=== PATIENT | male | born 1975 | race Caucasian/White ===

== ENCOUNTER 2017-03-02 11:31 | Emergency (ER) | payer MEDICAID, OTHER ==
[~2017-03-02] VITALS: Ht 190.5 cm; Wt 79.4 kg
[2017-03-02] MEDS ORDERED: DEXAMETHASONE PF 10 MG/ML (DECADRON) VIAL IV ONE (11:45)
--- NOTE | 2017-03-02 11:47 | ED Integumentary General ---
General Stated Complaint: POSS SPIDER BITE Source: patient Exam Limitations: no limitations History of Present Illness Time seen by provider: 11:45 Initial Comments To ER with concern of a possible spider bite. He first noticed this 2 days ago and found a spider in his bed. He saw [facility] urgent care who placed him on Bactrim and mupirocin. Since then he's had chills, progression of the redness to the back side of the right arm and muscle aches. Timing/Duration: getting worse Severity: moderate Associated Symptoms: denies symptoms Allergies and Home Medications Allergies Coded Allergies: No Known Drug Allergies (Unverified , 03/02/17) Constitutional: see HPI EENTM: see HPI Respiratory: no symptoms reported Cardiovascular: no symptoms reported Genitourinary: no symptoms reported Musculoskeletal: no symptoms reported Skin: see HPI Psychiatric/Neurological: No Symptoms Reported Endocrine: No Symptoms Reported Past [id number] Hx Patient Social History Recent Foreign Travel: No Contact w/Someone Who Travel: No Physical Exam Vital Signs Vital Sign - Last 12Hours 03/02/17 11:40 Temp 98.5 Pulse 83 Resp 18 B/P (MAP) 108/65 Pulse Ox 97 Capillary Refill : General Appearance: WD/WN, no apparent distress HEENT: PERRL/EOMI, normal ENT inspection Neck: non-tender, full range of motion Respiratory: no respiratory distress, no accessory muscle use Gastrointestinal: non tender, soft Neurologic/Psychiatric: alert, normal mood/affect, oriented x 3 Skin: normal color, warm/dry Skin Problem Location: other (there is an area to the dorsal aspect and volar aspect of the right upper arm. This area includes 2 small punctum which would be assumed to be the bite. Over one of these is a vesicle and this is surrounded by a blanched whitish area about 4 x 8 cm and within this whitish area is a petechial rash. Surrounding this whitish area is blanching erythema without induration.) Progress/Results/Core Measures Results/Orders Lab Results Laboratory Tests Test 03/02/17 11:46 Range/Units White Blood Count 15.7 H 4.3-11.0 10^3/uL Red Blood Count 4.65 4.35-5.85 10^6/uL Hemoglobin 14.4 13.3-17.7 G/DL Hematocrit 42 40-54 % Mean Corpuscular Volume 91 80-99 FL Mean Corpuscular Hemoglobin 31 25-34 PG Mean Corpuscular Hemoglobin Concent 34 32-36 G/DL Red Cell Distribution Width 12.3 10.0-14.5 % Platelet Count 239 130-400 10^3/uL Mean Platelet Volume 9.9 7.4-10.4 FL Neutrophils (%) (Auto) 87 H 42-75 % Lymphocytes (%) (Auto) 7 L 12-44 % Monocytes (%) (Auto) 4 0-12 % Eosinophils (%) (Auto) 2 0-10 % Basophils (%) (Auto) 0 0-10 % Neutrophils # (Auto) 13.6 H 1.8-7.8 X 10^3 Lymphocytes # (Auto) 1.0 1.0-4.0 X 10^3 Monocytes # (Auto) 0.6 0.0-1.0 X 10^3 Eosinophils # (Auto) 0.4 H 0.0-0.3 10^3/uL Basophils # (Auto) 0.0 0.0-0.1 10^3/uL Neutrophils % (Manual) 90 % Lymphocytes % (Manual) 7 % Monocytes % (Manual) 2 % Eosinophils % (Manual) 0 % Basophils % (Manual) 0 % Band Neutrophils 1 % Blood Morphology Comment NORMAL Sodium Level 137 135-145 MMOL/L Potassium Level 3.7 3.6-5.0 MMOL/L Chloride Level 100 98-107 MMOL/L Carbon Dioxide Level 24 21-32 MMOL/L Anion Gap 13 5-14 MMOL/L Blood Urea Nitrogen 10 7-18 MG/DL Creatinine 1.27 0.60-1.30 MG/DL Estimat Glomerular Filtration Rate > 60 BUN/Creatinine Ratio 8 Glucose Level 112 H 70-105 MG/DL Calcium Level 9.9 8.5-10.1 MG/DL Total Bilirubin 1.6 H 0.1-1.0 MG/DL Aspartate Amino Transf (AST/SGOT) 21 5-34 U/L Alanine Aminotransferase (ALT/SGPT) 22 0-55 U/L Alkaline Phosphatase 69 40-136 U/L Myoglobin 146.2 H 10.0-92.0 NG/ML C-Reactive Protein High Sensitivity 11.04 H 0.00-0.50 MG/DL Total Protein 7.6 6.4-8.2 GM/DL Albumin 4.4 3.2-4.5 GM/DL My Orders Orders - LANA HERNANDEZ [employer] [facility] C Reactive Protein (03/02/17 11:44) Myoglobin Serum (03/02/17 11:44) Cbc With Automated Diff (03/02/17 11:44) Comprehensive Metabolic Panel (03/02/17 11:44) Saline Lock/Iv-Start (03/02/17 11:44) Dexamethasone Pf Injection (Decadron Pf (03/02/17 11:45) Manual Differential (03/02/17 11:46) Medications Given in ED Current Medications Medications Dose Ordered Sig/Tessie Route Start Time Stop Time Status Last Admin Dose Admin Dexamethasone Sodium Phosphate 10 mg ONCE ONCE IV 03/02/17 11:45 03/02/17 11:46 DC 03/02/17 11:55 10 MG Vital Signs/I&O Vital Sign - Last 12Hours 03/02/17 11:40 Temp 98.5 Pulse 83 Resp 18 B/P (MAP) 108/65 Pulse Ox 97 Departure Impression Impression: Primary Impression: Brown recluse spider bite Disposition: 01 HOME, SELF-CARE Condition: Stable Departure-Patient Inst. Decision time for Depature: 12:47 Referrals: NO,LOCAL PHYSICIAN (PCP/Family) Primary Care Physician Patient Instructions: Insect Bites and Stings (DC) Add. Discharge Instructions: 1. Cold compresses to this area a few times a day 2. Return to ER for any fevers or worsening symptoms in the meantime. Otherwise, I'd like to see you back here on Sunday the for a recheck. Continue current medications Scripts Hydrocodone/Acetaminophen ([place] 5-325 Tablet) 1 Each Tablet 1 EACH PO Q4H Y for PAIN-MODERATE TO SEVERE, #14 TAB Prov: LANA HERNANDEZ APRN 03/02/17 LANA HERNANDEZ APRN Mar 02, 2017 11:47
[2017-03-02 11:55] LABS: BASOPHILS % (AUTO) 0 % (0-10); EOSINOPHILS # (AUTO) 0.4 10^3/uL (0.0-0.3); EOSINOPHILS % (AUTO) 2 % (0-10); LYMPHOCYTES % (AUTO) 7 % (12-44); MEAN CORPUSCULAR HEMOGLOBIN 31 PG (25-34); MEAN CORPUSCULAR HGB CONC 34 G/DL (32-36); MEAN CORPUSCULAR VOLUME 91 FL (80-99); MEAN PLATELET VOLUME 9.9 FL (7.4-10.4); MONOCYTES # (AUTO) 0.6 X 10^3 (0.0-1.0); MONOCYTES % (AUTO) 4 % (0-12); NEUTROPHILS # (AUTO) 13.6 X 10^3 (1.8-7.8); NEUTROPHILS % (AUTO) 87 % (42-75); PLATELET COUNT 239 10^3/uL (130-400); RED BLOOD COUNT 4.65 10^6/uL (4.35-5.85); RED CELL DISTRIBUTION WIDTH 12.3 % (10.0-14.5); WHITE BLOOD COUNT 15.7 10^3/uL (4.3-11.0)
[2017-03-02 12:14] LABS: BAND NEUTROPHILS 1 %; BASOPHILS % (MANUAL) 0 %; EOSINOPHILS % (MANUAL) 0 %; LYMPHOCYTES % (MANUAL) 7 %; NEUTROPHILS % (MANUAL) 90 %
[2017-03-02 12:27] LABS: ALANINE AMINOTRANSFERASE 22 U/L (0-55); ALBUMIN 4.4 GM/DL (3.2-4.5); ANION GAP 13 MMOL/L (5-14); ASPARTATE AMINO TRANSFERASE 21 U/L (5-34); BILIRUBIN,TOTAL 1.6 MG/DL (0.1-1.0); BLOOD UREA NITROGEN 10 MG/DL (7-18); BUN/CREATININE RATIO 8; CALCIUM 9.9 MG/DL (8.5-10.1); CARBON DIOXIDE 24 MMOL/L (21-32); CHLORIDE 100 MMOL/L (98-107); CREATININE SERUM 1.27 MG/DL (0.60-1.30); GFR ESTIMATED > 60; GLUCOSE 112 MG/DL (70-105); POTASSIUM 3.7 MMOL/L (3.6-5.0); SODIUM 137 MMOL/L (135-145); TOTAL PROTEIN 7.6 GM/DL (6.4-8.2); hs C REACTIVE PROTEIN 11.04 MG/DL (0.00-0.50)
[2017-03-02 12:34] LABS: MYOGLOBIN SERUM 146.2 NG/ML (10.0-92.0)
[2017-03-02] MEDS ORDERED: HYDR-757 PO (12:50)
[2017-03-02 13:03] VITALS: BP 108/65
== END 2017-03-02 13:03 | disposition home or self-care (01) ==
LOC: ER 11:34
DX: S40.861A Insect bite (nonvenomous) of right upper arm, initial encounter (principal); W57.XXXA Bitten or stung by nonvenomous insect and other nonvenomous arthropods, initial encounter
CPT/HCPCS: 36415; 80053; 83874; 85007; 85027; 86141; 96374

== ENCOUNTER 2017-03-05 12:05 | Emergency (ER) | payer MEDICAID ==
[~2017-03-05] VITALS: Ht 190.5 cm; Wt 81.6 kg
[~2017-03-05 12:05] MED LIST: HYDR-757 PO
--- NOTE | 2017-03-05 12:40 | ED Suture Removal/Wound Check ---
Suture/Wound Re-check General Appearance: WD/WN, no apparent distress Skin Exam: normal color, warm/dry Physical Exam Vital Signs Capillary Refill : General Appearance: WD/WN, no apparent distress HEENT: PERRL/EOMI, normal ENT inspection Neck: non-tender, full range of motion Neurologic/Psychiatric: normal mood/affect, oriented x 3 Skin: normal color, warm/dry Skin Problem Location: other (the erythema that was surrounding the central lesion to the volar aspect of the right upper arm appears much better. Patient states he is feeling much better and has much more energy. No fevers or chills. He does still have a persistent lanced area with petechiae measuring about 2 x 7 cm just distal to the axilla at the volar side of the arm. This may become necrotic and should have surgical follow-up.) Departure Impression Impression: Primary Impression: Spider bite Disposition: 01 HOME, SELF-CARE Condition: Stable Departure-Patient Inst. Decision time for Depature: 12:39 Referrals: DAVID LAZARO,LOCAL PHYSICIAN (PCP) Primary Care Physician Patient Instructions: Spider Bites Add. Discharge Instructions: 1. Call Dr. Lazaro today to make an appointment to be seen just in case this white area ultimately dyes and needs to be removed surgically, though this may heal just fine All discharge instructions reviewed with patient and/or family. Voiced understanding. LANA HERNANDEZ APRN Mar 05, 2017 12:40
[2017-03-05 12:42] VITALS: BP 136/92
== END 2017-03-05 12:45 | disposition home or self-care (01) ==
LOC: EDUNIT# 12:05 → ER 12:06
DX: S40.861D Insect bite (nonvenomous) of right upper arm, subsequent encounter (principal); W57.XXXD Bitten or stung by nonvenomous insect and other nonvenomous arthropods, subsequent encounter